=== PATIENT | male | born 1960 ===

== ENCOUNTER 2018-02-04 10:05 | Outpatient (CLI) | payer OTHER | END 2018-02-04 15:40 | disposition home or self-care (01) | LOC: LAB 10:05 | DX: I10 Essential (primary) hypertension (principal); E11.9 Type 2 diabetes mellitus without complications; E03.9 Hypothyroidism, unspecified; E78.2 Mixed hyperlipidemia; D68.9 Coagulation defect, unspecified ==

== ENCOUNTER 2018-02-04 10:09 | Outpatient (CLI) | payer OTHER | END 2018-02-04 15:39 | disposition home or self-care (01) | LOC: RAD 10:09 | DX: Z01.818 Encounter for other preprocedural examination (principal); K40.90 Unilateral inguinal hernia, without obstruction or gangrene, not specified as recurrent ==

== ENCOUNTER 2018-03-06 05:30 | Day surgery (SDC) | payer OTHER ==
[~2018-03-06 05:30] MED LIST: AMLODIPINE-OLM1 EACH PO; OMEPRAZOLE20 MG PO; SIMVASTATIN5 MG PO
[2018-03-06] MEDS ORDERED: PERCOCET 5-3251 EACH PO (11:28)
[2018-03-06] MEDS ORDERED: POLY119PG PO (11:28)
== END 2018-03-06 15:40 | disposition home or self-care (01) ==
LOC: CIR.AMB 05:30
DX: K40.90 Unilateral inguinal hernia, without obstruction or gangrene, not specified as recurrent (principal)

== ENCOUNTER 2018-03-09 07:20 | Emergency (ER) | payer OTHER ==
[~2018-03-09] VITALS: Ht 172.7 cm; Wt 87.5 kg
[~2018-03-09 07:20] MED LIST changes: +PERCOCET 5-3251 EACH PO; +POLY119PG PO
== END 2018-03-09 14:07 | disposition home or self-care (01) ==
LOC: ER 07:20
DX: J06.9 Acute upper respiratory infection, unspecified (principal); J98.11 Atelectasis

== ENCOUNTER 2021-02-17 10:15 | Day surgery (SDC) | payer OTHER | END 2021-02-17 13:24 | disposition home or self-care (01) | LOC: AMB-ENDOS 10:15 | PROVIDERS: ATTEND Surgery | DX: K62.89 Other specified diseases of anus and rectum (principal); Z20.822 Contact with and (suspected) exposure to COVID-19; Z12.11 Encounter for screening for malignant neoplasm of colon ==